=== PATIENT | female | born 1990 | race Caucasian/White ===

== ENCOUNTER 2018-12-10 20:04 | Emergency (ER) | payer BC, OTHER ==
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
[2018-12-10 20:58] LABS: CHLORIDE,CL 106 mmol/L (98-107); SODIUM,NA 145 mmol/L (136-145)
[2018-12-10 21:00] LABS: ANION GAP 18.5 mmol/L (10-20)
[2018-12-10 21:10] LABS: ACETAMINOPHEN 7 ug/ml (10-30)
[2018-12-10] MEDS ORDERED: DULoxetine 60 MG Cap PO ONE (21:39)
== END 2018-12-10 23:16 | disposition home or self-care (01) ==
LOC: VM.ED 20:04
DX: F32.9 Major depressive disorder, single episode, unspecified (principal); R45.6 Violent behavior
CPT/HCPCS: 36415; 80053; 80305-QW; 81001; 81025; 83735; 84100; 84443; 85025; 85610; 99285; A9270-GY; G0480